=== PATIENT | male | born 1945 | race Caucasian/White ===

== ENCOUNTER 2016-11-19 09:44 | Emergency (ER) | payer MEDICARE, OTHER ==
--- NOTE | 2016-11-26 08:39 | ER ---
ADMIT: 11/19/2016 RM/LOC: ER [facility] MR#: [id number] [address] [id number] HODAN KENYON [address] [place] [address] Emergency Room Report SEX: M AGE: 71 : 1945 DATE: 11/19/2016 This 71-year-old gentleman comes to the Emergency Department with 3 or 4 days of mild nausea and diarrhea, it was sudden onset. It is still present. Denies any abdominal pain. Does complain of some nausea and moderate diarrhea. Of note, he had been taking milk of magnesia and is not quite certain why. He has past history is for coronary artery disease. He is a bypass patient. He has no chest pain, palpitations, or shortness of breath. He has occasional alcohol. For physical exam, see T sheet for remainder of history and physical: UA was unremarkable. CMP was likewise unremarkable. CBC with hemoglobin 11.9, otherwise unremarkable. The patient was diagnosed with diarrhea and gastroenteritis, likely exacerbated by the use of milk of magnesia. He is instructed to stop the milk of magnesia and to follow up with his primary doctor this coming week if symptoms did not improve. Carlos Adkins MD/ krista JOB #: [id number] CC: Carlos Adkins MD, Attending Physician UNKNOWN, Family Physician
== END 2016-11-19 12:48 | disposition home or self-care (01) ==
LOC: ER 09:44
DX: K52.9 Noninfective gastroenteritis and colitis, unspecified (principal); R19.7 Diarrhea, unspecified; I25.10 Atherosclerotic heart disease of native coronary artery without angina pectoris; Z95.1 Presence of aortocoronary bypass graft; E78.00 Pure hypercholesterolemia, unspecified; Z79.899 Other long term (current) drug therapy; Z79.82 Long term (current) use of aspirin